=== PATIENT | male | born 1985 | race Caucasian/White ===

== ENCOUNTER 2018-02-01 17:27 | Emergency (ER) | payer SELFPAY ==
[~2018-02-01] VITALS: Ht 167.6 cm; Wt 63.5 kg
--- NOTE | 2018-02-01 17:31 | NUR ---
pt biba bedside triaged in ed bed 9
[2018-02-01 17:32] VITALS: BP 143/89
--- NOTE | 2018-02-01 17:35 | NUR ---
PT STATES HE TOOK 2 GMS OF METH TO GET HIGH, UNK TIME. PT IS SINUS TACH ON ARRIVAL. DENIES CP/SOB. NOT SUICIDAL NOT HOMICIDAL. NO OTHER COMPLAINTS AT THIS TIME. PT ON FULL MONITOR.
--- NOTE | 2018-02-01 18:12 | NUR ---
pt ambulatory with steady gait to restroom
--- NOTE | 2018-02-01 18:30 | NUR ---
pt finished washing up in restroom ---stated he no longer wants to be seen and ambulated out of the ER with his bicycle---steady gait full clear speech, a/o x4
--- NOTE | 2018-02-01 18:32 | NUR ---
PATIENT ELOPED FROM FACILITY. DISCHARGE INSTRUCTIONS NOT GIVEN TO PATIENT. DR. griffin NOTIFIED.
== END 2018-02-01 18:32 | disposition left against medical advice (07) ==
LOC: MED 17:27
DX: F11.90 Opioid use, unspecified, uncomplicated (principal); F15.10 Other stimulant abuse, uncomplicated; R03.0 Elevated blood-pressure reading, without diagnosis of hypertension
CPT/HCPCS: 99281